=== PATIENT | male | born 1975 | race Caucasian/White ===

== ENCOUNTER 2018-03-13 12:11 | Emergency (ER) | payer OTHER ==
[2018-03-13 12:17] VITALS: BP 150/87
--- NOTE | 2018-03-13 12:24 | EDPHY ---
H & P Time Seen by Provider: 03/13/18 12:19 HPI/ROS: CHIEF COMPLAINT: Right ankle pain post basketball HISTORY OF PRESENT ILLNESS: 42-year-old male with no prior history of right ankle injury complaining of acute right lateral ankle injury after he was playing basketball, landed and rolled his foot. He is able to bear partial weight. Complaining of pain to the lateral malleolus as well as some proximal fibular pain. Intact skin. No paresthesia. No foot pain. No calcaneus pain. Occurred shortly prior to arrival. PRIMARY CARE PROVIDER: REVIEW OF SYSTEMS: A ten point review of systems was performed and is negative with the exception of the items mentioned in the HPI PHYSICAL EXAM (Prior to examination, patient consented to physical exam, hands were washed and my usual and customary physical exam procedures followed) 1) GENERAL: Well-developed, well-nourished, alert and oriented. Appears to be in no acute distress. 2) HEAD: Normocephalic 3) HEENT: Pupils equal, round, reactive to light bilaterally. 4) LUNGS: Breathing comfortably. 5) MUSCULOSKELETAL: Tender to palpation fibular head. Tender to palpation lateral malleolus. .5th MT nontender negative Alt[place]irano test, compartments soft 6) SKIN: Intact no tenting 7) VASCULAR: DP,PT pulses and cap refill present and brisk DIFFERENTIAL DIAGNOSIS: in no particular order including but not limited to fracture, sprain, compartment syndrome Procedure: Crutches indications for crutch use discussed with patient. Patient fitted for crutches by ER staff. Observed ambulating with crutches. I think the patient has the capacity to safely use crutches. Usual and customary crutch walking precautions provided Procedure: Splint A jayy boot splint was applied by ER electrical engineering technician. After application of the splint I returned and re-examined the patient. The splint was adequately immobilizing the joint and distal to the splint the patient's circulation and sensation were intact. Patient shows no signs of compartment syndrome. Was given orthopedic precautions. Smoking Status: Never smoked Constitutional: Initial Vital Signs Temperature (C) 36.7 C 03/13/18 12:13 Heart Rate 76 03/13/18 12:13 Respiratory Rate 16 03/13/18 12:13 Blood Pressure 150/87 H 03/13/18 12:13 O2 Sat (%) 97 03/13/18 12:13 O2 Delivery Mode Room Air Allergies/Adverse Reactions: No Known Allergies Allergy (Unverified 03/13/18 12:13) Home Medications: Medication Instructions Recorded NK [No Known Home Meds] 03/13/18 MDM/Departure - MDM Imaging Results: Imaging Impressions Ankle X-Ray 03/13/18 12:29 Impression: No acute abnormality. Right Ankle Series, 3 Views, at 12:34 PM: There is a mildly displaced irregularly-marginated A. Asael fracture off the posterior talus seen on the lateral view. There is a well-corticated ovoid-shaped ossicle projected over the anterior tibiotalar joint space, and there is some osseous hypertrophy of the dorsal mid to distal talus. There is also a linear ossification seen dorsal to the navicular, which may represent an avulsion fragment at the capsular insertion. The subtalar joint and talar neck are normal. Boehler's angle is normal. There are some mild degenerative spurring along the undersurface of the medial and lateral malleoli. Impression: 1. Dorsal talar avulsion fracture. 2. Dorsal navicular avulsion fracture. 3. Degenerative osteoarthrosis. Tibia/Fibula X-Ray 03/13/18 12:29 Impression: No acute abnormality. Right Ankle Series, 3 Views, at 12:34 PM: There is a mildly displaced irregularly-marginated A. Asael fracture off the posterior talus seen on the lateral view. There is a well-corticated ovoid-shaped ossicle projected over the anterior tibiotalar joint space, and there is some osseous hypertrophy of the dorsal mid to distal talus. There is also a linear ossification seen dorsal to the navicular, which may represent an avulsion fragment at the capsular insertion. The subtalar joint and talar neck are normal. Boehler's angle is normal. There are some mild degenerative spurring along the undersurface of the medial and lateral malleoli. Impression: 1. Dorsal talar avulsion fracture. 2. Dorsal navicular avulsion fracture. 3. Degenerative osteoarthrosis. I imaging reviewed by myself Medications Given: Discontinued Medications Ibuprofen (Motrin) 600 mg PO EDNOW ONE Stop: 03/13/18 12:57 Last Admin: 03/13/18 12:56 Dose: 600 mg - Depart Disposition: Home, Routine, Self-Care Clinical Impression: Right ankle sprain Qualifiers: Encounter type: initial encounter Involved ligament of ankle: unspecified ligament Qualified Code(s): S93.401A - Sprain of unspecified ligament of right ankle, initial encounter Ankle fracture Qualifiers: Encounter type: initial encounter Fracture type: closed Laterality: right Qualified Code(s): S82.891A - Other fracture of right lower leg, initial encounter for closed fracture Condition: Good Instructions: Ankle Sprain (ED), Crutch Instructions (ED), Ankle Fracture (ED) Additional Instructions: Return to the ER immediately if you experience discoloration, have worsening pain, numbness, tingling, or any other symptoms that concern you. If you received x-rays in the emergency department today, be advised, that ligamentous , tendon, muscular, and other non-bony injury cannot be fully ruled out. Try to keep your affected extremity elevated above the level of your chest, and keep cold packs on the affected area, for the next 48 hours. Referrals: Carri Cruz MD [Medical Doctor] - 2-3 days, call for appt.
[2018-03-13] MEDS ORDERED: IBUPROFEN 600 MG TAB PO ONE ×2 (12:50→12:56)
== END 2018-03-13 13:22 | disposition home or self-care (01) ==
DX: S92.101A Unspecified fracture of right talus, initial encounter for closed fracture (principal); S92.251A Displaced fracture of navicular [scaphoid] of right foot, initial encounter for closed fracture; S93.401A Sprain of unspecified ligament of right ankle, initial encounter; Y93.67 Activity, basketball; X50.0XXA Overexertion from strenuous movement or load, initial encounter; Y99.8 Other external cause status
CPT/HCPCS: L4386